=== PATIENT | female | born 1975 | race Caucasian/White ===

== ENCOUNTER 2020-04-08 11:08 | Emergency (ER) | payer OTHER ==
--- NOTE | 2020-04-08 12:16 | ER ---
Nurse's Notes [facility] Name: Oliver Savage Age: 44 yrs Sex: Female : 1975 Arrival Date: 04/08/2020 Time: 11:11 Bed 12 Private MD: Diagnosis: Allergic contact dermatitis Presentation: 04/08 11:27 Chief complaint: Patient states: I thought it was just the poison La spreading but I dm5 think I may be allergic to the benadryl or tramadol I have been taking for the poison La. Rash noted to left arm and leg. Pt reports eyes are swollen and that the rash continues to spread. Coronavirus screen: Proceed with normal triage. Patient denies a cough. Patient denies shortness of breath or difficulty breathing. Patient denies measured and/or subjective temperature greater than 100.4F prior to today's visit. Patient denies travel on a cruise ship or to a country the [facility] currently lists as an affected area. Patient denies contact with known and/or suspected case of COVID-19. Ebola Screen: Patient negative for fever greater than or equal to 101.5 degrees Fahrenheit, and additional compatible Ebola Virus Disease symptoms Patient denies exposure to infectious person. Patient denies travel to an Ebola-affected area in the 21 days before illness onset. No symptoms or risks identified at this time. Onset: The symptoms/episode began/occurred gradually. Anaphylaxis evaluation, no signs or symptoms of anaphylaxis were noted. Initial Sepsis Screen: Does the patient meet any 2 criteria? No. Patient's initial sepsis screen is negative. Does the patient have a suspected source of infection? Yes: Skin breakdown/wound. Risk Assessment: Do you want to hurt yourself or someone else? Patient reports no desire to harm self or others. Onset of symptoms was March 31, 2020. 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 - Social history:: Smoking status: Patient denies any tobacco usage or history of. Screenin:13 Abuse screen: Denies threats or abuse. Denies injuries from another. Nutritional ss screening: No deficits noted. Tuberculosis screening: No symptoms or risk factors identified. Never had TB. Fall Risk None identified. Assessment: 12:10 General: Appears uncomfortable, Behavior is calm, cooperative. Pain: Complains of pain ss in affected areas Pain currently is 3 out of 10 on a pain scale. Neuro: Level of Consciousness is awake, alert, obeys commands, Oriented to person, place, time, situation. Cardiovascular: Capillary refill < 3 seconds is brisk in bilateral fingers. Respiratory: Airway is patent Respiratory effort is even, unlabored, Respiratory pattern is regular, symmetrical, Breath sounds are clear bilaterally. Denies shortness of breath. Derm: Skin is intact, is healthy with good turgor, Skin is dry. Vital Signs: 11:27 BP 101 / 51; Pulse 88; Resp 18; Temp 98.9; Pulse Ox 99% on R/A; Weight 102.51 kg (R); dm5 Height 5 ft. 4 in. (162.56 cm); Pain 3/10; 11:27 Body Mass Index 38.79 (102.51 kg, 162.56 cm) dm5 ED Course: 11:11 Patient arrived in ED. mr 11:30 Triage completed. dm5 12:02 Aileen Joyce FNP-C is [facility]. kb 12:02 Corby Culp MD is Attending Physician. kb 12:10 Kendal Connelly, SARABJIT is Primary Nurse. ss 12:13 Patient has correct armband on for positive identification. Bed in low position. Call ss light in reach. 12:13 No provider procedures requiring assistance completed. Patient did not have IV access ss during this emergency room visit. Administered Medications: 12:25 Drug: predniSONE 40 mg Route: PO; ss 12:25 Follow up: Response: Medication administered at discharge. ss 12:25 Not Given (on backorder ): Pepcid 20 mg PO once ss Outcome: 12:15 Discharge ordered by . kb 12:26 Discharged to home ambulatory. ss 12:26 Condition: good 12:26 Discharge instructions given to patient, family, Instructed on discharge instructions, follow up and referral plans. medication usage, Demonstrated understanding of instructions, follow-up care, medications, Prescriptions given X 2. 12:26 Patient left the ED. ss Signatures: Aileen Joyce, MELO-C NURSE INFECTION CONTROL-Kandi Molina, RN RN dm5 Lloyd Merry mr Kendal Connelly, SARABJIT RN ss
--- NOTE | 2020-04-08 12:16 | EDPHYS ---
Physician Documentation [facility] Name: Oliver Savage Age: 44 yrs Sex: Female : 1975 Arrival Date: 04/08/2020 Time: 11:11 Bed 12 Private MD: NITO Physician Corby Culp HPI: 04/08 12:12 This 44 yrs old Female presents to ER via Ambulatory with complaints of kb Allergic Reaction. 12:12 The patient presents with itching, rash. Onset: The symptoms/episode began/occurred 2 kb week(s) ago. Associated signs and symptoms: Pertinent positives: rash. Possible causes: At home the patient or guardian has treated the symptoms with Benadryl. Severity of symptoms: At their worst the symptoms were moderate in the emergency department the symptoms are unchanged. The patient has not experienced similar symptoms in the past. The patient has not recently seen a physician. Pt reports she fell while in on 03/26/20. States she developed a rash on left arm so she assumed she fell into poison curtis. States she has been taking benadryl every morning for the rash and itching and tramadol at night to sleep. Reports the rash has been spreading despite meds so she is concerned that maybe she is having a reaction to the medications. 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 - Social history:: Smoking status: Patient denies any tobacco usage or history of. ROS: 12:11 Constitutional: Negative for fever, chills, and weight loss, Cardiovascular: Negative kb for chest pain, palpitations, and edema, Respiratory: Negative for shortness of breath, cough, wheezing, and pleuritic chest pain, Abdomen/GI: Negative for abdominal pain, nausea, vomiting, diarrhea, and constipation, MS/Extremity: Negative for injury and deformity, Neuro: Negative for headache, weakness, numbness, tingling, and seizure. 12:11 Skin: Positive for rash, of the face, back, buttocks and left arm. Exam: 12:11 Constitutional: This is a well developed, well nourished patient who is awake, alert, kb and in no acute distress. Head/Face: Normocephalic, atraumatic. Chest/axilla: Normal chest wall appearance and motion. Nontender with no deformity. No lesions are appreciated. Cardiovascular: Regular rate and rhythm with a normal S1 and S2. No gallops, murmurs, or rubs. Normal PMI, no JVD. No pulse deficits. Respiratory: Lungs have equal breath sounds bilaterally, clear to auscultation and percussion. No rales, rhonchi or wheezes noted. No increased work of breathing, no retractions or nasal flaring. Abdomen/GI: Soft, non-tender, with normal bowel sounds. No distension or tympany. No guarding or rebound. No evidence of tenderness throughout. MS/ Extremity: Pulses equal, no cyanosis. Neurovascular intact. Full, normal range of motion. Neuro: Awake and alert, GCS 15, oriented to person, place, time, and situation. Cranial nerves II-XII grossly intact. Motor strength 5/5 in all extremities. Sensory grossly intact. Cerebellar exam normal. Normal gait. 12:11 Skin: rash a moderate rash is noted, consistent with contact dermatitis, on the left arm and buttocks and back and face. Vital Signs: 11:27 BP 101 / 51; Pulse 88; Resp 18; Temp 98.9; Pulse Ox 99% on R/A; Weight 102.51 kg (R); dm5 Height 5 ft. 4 in. (162.56 cm); Pain 3/10; 11:27 Body Mass Index 38.79 (102.51 kg, 162.56 cm) dm5 MDM: 12:03 Patient medically screened. kb 12:10 Data reviewed: vital signs, nurses notes. Data interpreted: Pulse oximetry: on room air kb is 99 %. Interpretation: normal. Counseling: I had a detailed discussion with the patient and/or guardian regarding: the historical points, exam findings, and any diagnostic results supporting the discharge/admit diagnosis, the need for outpatient follow up, a family practitioner, to return to the emergency department if symptoms worsen or persist or if there are any questions or concerns that arise at home. Administered Medications: 12:25 Drug: predniSONE 40 mg Route: PO; ss 12:25 Follow up: Response: Medication administered at discharge. ss 12:25 Not Given (on backorder ): Pepcid 20 mg PO once ss Disposition: 20:33 Co-signature as Attending Physician, Corby Culp MD I agree with the assessment and sonny plan of care. Disposition: 04/08/20 12:15 Discharged to Home. Impression: Allergic contact dermatitis. - Condition is Stable. - Discharge Instructions: Contact Dermatitis, [id number]. - Prescriptions for Pepcid 20 mg Oral Tablet - take 1 tablet by ORAL route every 12 hours for 5 days; 10 tablet. Prednisone 20 mg Oral Tablet - take 1 tablet by ORAL route once daily for 5 days; 5 tablet. - Medication Reconciliation Form, Thank You Letter, Antibiotic Education, Prescription Opioid Use form. - Follow up: Emergency Department; When: As needed; Reason: Worsening of condition. Follow up: Private Physician; When: 2 - 3 days; Reason: Recheck today's complaints, Continuance of care, Re-evaluation by your physician. Signatures: Aileen Joyce, MELO-C MELO-Kandi Molina, RN RN dmCorby Romo MD MD cha Smirch, Shelby, RN RN Corrections: (The following items were deleted from the chart) 12:26 12:15 04/08/2020 12:15 Discharged to Home. Impression: Allergic contact dermatitis. ss Condition is Stable. Forms are Medication Reconciliation Form, Thank You Letter, Antibiotic Education, Prescription Opioid Use. Follow up: Emergency Department; When: As needed; Reason: Worsening of condition. Follow up: Private Physician; When: 2 - 3 days; Reason: Recheck today's complaints, Continuance of care, Re-evaluation by your physician. kb
[2020-04-08] MEDS ORDERED: predniSONE 20 MG TAB ONE (12:29)
[2020-04-08 12:43] VITALS: BP 101/51; TEMP 98.9; O2SAT 99
--- OUTSIDE RECORDS SUMMARY | 2020-04-08 15:25 | XMS REPORT | Continuity of Care Document ---
:1975 Author Organization [facility] t Address [address] [place] [address] Care Team Providers Name Role Phone Oksana Briseno Attending Clinician Anastasiia Steel MD Attending Clinician Problems This patient has no known problems. Allergies, Adverse Reactions, Alerts This patient has no known allergies or adverse reactions. Medications This patient has no known medications. Procedures This patient has no known procedures. Encounters Start End Encounter Admission Attending Care Care Encounter Source Date/Time Date/Time Type Type Clinicians Facility Department ID 2020-03-31 2020-03-31 Urgent Garth [facility] [id number] 10:47:13 12:00:20 Care Lori [facility] [id number] [facility] [id number] Primary & [facility] Specialty Care 2020-03-21 2020-03-21 Office YAHAIRA Steel [id number] 10:23:12 10:53:12 Visit [facility] [id number] Results This patient has no known results.
--- OUTSIDE RECORDS SUMMARY | 2020-04-08 15:26 | XMS REPORT | Summary of Care ---
:1975 Author Organization [facility] - [facility] Address [address] [place] [address] Care Team Providers Name Role Phone Pcp, Does Not Have A Primary Care Provider Reason for Visit Reason Comments Vaginal Problem itching and odor Auth/Cert Status Reason Specialty Diagnoses / Procedures Referred By Shaji ricci Referred To Contact Phlebotomy Diagnoses Vaginal discharge - Adc Pob Lab Draw Procedures urine cx [facility] [address] [place] [address] shelly Eason, [address] [place] [address] Phone: Fax: Encounter Details Date Type Department Care Team Description 03/13/2020 Urgent Care [facility] Family IngridKia coleman, ALEJO [address] [place] [address] [facility] [phone] Vaginal discharge (Primary Dx); Medicine - [place] Provider, [facility] Vaginal irritation; [address] [place] [address] Acute cyst itis without hematuria; Drive Screen for STD (sexually tra nsmitted disease) [place] [address] Allergies Active Allergy Reactions Severity Noted Date Comments Nitrofurantoin Monohyd/M-Cryst Anaphylaxis 02/23/2012 Miconazole-Skin Clnsr17 Hives 06/09/2015 Morphine Itching 04/15/2015 documented as of this encounter (statuses as of 03/16/2020) Medications Medication Sig Dispensed Refills Start Date End Date Status estradiol 0.1 mg/24 Apply 1 Patch to 8 Patch 0 07/09/2019 Active hr twice weekly skin every Tuesday patchIndications: and in Surgical menopause on the evening. hormone replacement therapy ESTRADIOL 0.1 mg/24 APPLY 1 PATCH 2 8 Patch 3 12/10/2019 Active hr twice weekly TIMES A WEEK ON patchIndications: TUESDAY AND Surgical menopause TUESDAY. cefUROXime 250 mg Take 1 tablet by 14 tablet 0 03/13/202002/25 Active tabletIndications: mouth 2 (two) Acute cystitis times daily for 7 without hematuria days. 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 COVID-19 Exposure Response Date Recorded In the last month, have you been in contact with No / Unsure 03/13/2020 3:28 PM CDT someone who was confirmed or suspected to have Coronavirus / COVID-19? documented as of this encounter Last Filed Vital Signs Vital Sign Reading Time Taken Comments Blood Pressure 136/80 03/13/2020 3:40 PM CDT Pulse 86 03/13/2020 3:40 PM CDT Temperature 37.2 C (98.9 F) 03/13/2020 3:40 PM CDT Respiratory Rate 18 03/13/2020 3:40 PM CDT Oxygen Saturation 99% 03/13/2020 3:40 PM CDT Inhaled Oxygen Concentration - - Weight 95.3 kg (210 lb) 03/13/2020 3:40 PM CDT Height 162.6 cm (5' 4") 03/13/2020 3:40 PM CDT Body Mass Index 36.05 03/13/2020 3:40 PM CDT documented in this encounter Progress Notes Nelly Quintero PA - 03/13/2020 3:20 PM CDT Cc: Chief Complaint Patient presents with Vaginal Problem itching and odor Oliver De La O is a 44 year old female. Vaginal discharge: Duration: 3 days ago Color: clear and milky Sexually active: yes. Patient had unprotected intercourse with ex- PMH of STD: none Denies partner having known STD S/p total hysterectomy Admits to using vaginal wipes Takes baths Associated s/s: + foul odor + vaginal irritation/ itching No bleeding, pain No genital lesions No dysuria, frequency, urgency, hematuria, flank pain No abdominal pain,n/v/d/c No f/c No rash Tx: nothing Allergies Oliver is allergic to macrobid [nitrofurantoin monohyd/m-cryst]; monistat 1 triple action [miconazole-skin ]; and morphine. Medications Outpatient Medications Prior to Visit Medication Sig Dispense Refill estradiol 0.1 mg/24 hr twice weekly patch Apply 1 Patch to skin every Tuesday and [facility] 8 Patch 0 ESTRADIOL 0.1 mg/24 hr twice weekly patch APPLY 1 PATCH 2 TIMES A WEEK ON TUESDAY AND TUESDAY. 8 Patch 3 No facility-administered medications prior to visit. 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 of cervix Past Surgical History: Procedure Laterality Date COLONOSCOPY N/A 01/07/2015 Surgeon: Oscar Hernandez MD; Location: [facility] CYSTOSCOPY 04/16/2015 EGD (ENDO) 03/07/2019 normal ESOPHAGOGASTRODUODENOSCOPY N/A 01/07/2015 Surgeon: Oscar Hernandez MD; Location: [facility] ESOPHAGOGASTRODUODENOSCOPY N/A 04/14/2017 Surgeon: Avinash Gracia MD; Location: [facility] ESOPHAGOGASTRODUODENOSCOPY N/A 03/07/2019 Surgeon: Avinash Gracia MD; Location: [facility] FLEX SIGMOIDOSCOPY 03/07/2019 small rectal polyp, repeat 1-2 yrs LAP W/TOT HYSTERECT <250GM W/TUBE/OVARY 04/15/2015 LAP,SURG,COLECTOMY,TOTAL,W/O PROCTECTOMY 02/04/2015 LAPAROSCOPIC ASSISTED VAGINAL HYSTERECTOMY N/A 04/15/2015 Surgeon: Jose Alfredo Bertrand; [facility]: [facility] LAPAROSCOPIC ASSISTED VAGINAL HYSTERECTOMY N/A 04/15/2015 Surgeon: Jose Alfredo Bertrand; [facility]: [facility] LAPAROSCOPIC COLECTOMY N/A 02/04/2015 Surgeon: Avinash Gracia MD; [facility]: [facility] LAPAROSCOPIC LYSIS OF ADHESIONS (SHX) 02/04/2015 LAPAROSCOPIC LYSIS OF ADHESIONS (SHX) N/A 02/04/2015 Surgeon: Avinash Gracia MD; [facility]: [facility] OTHER Bunion surgery PROCTOSCOPY N/A 02/04/2015 Surgeon: Avinash Gracia MD; Location: [facility] SALPINGO-OOPHORECTOMY N/A 04/15/2015 Surgeon: Jose Alfredo Bertrand; Location: [facility] SIGMOIDOSCOPY N/A 12/30/2016 Surgeon: Avinash Gracia MD; Location: [facility] SIGMOIDOSCOPY N/A 12/30/2016 Surgeon: Avinash Gracia MD; Location: [facility] Location SIGMOIDOSCOPY N/A 03/07/2019 Surgeon: Avinash Gracia MD; Location: [facility] SPLENIC FLEXURE MOBILIZATION N/A 02/04/2015 Surgeon: Avinash Gracia MD; Location: [facility] TONSILLECTOMY 1984 URETEROLYSIS 02/04/2015 Social History Socioeconomic History Marital status: Spouse name: Not on file Number of children: Not on file Years of education: Not on file Highest education level: Not on file Occupational History Not on file Social Needs Financial resource strain: Not on file Food insecurity: Worry: Not on file Inability: Not on file Transportation needs: Medical: Not on file Non-medical: Not on file Tobacco Use Smoking status: Never Smoker Smokeless tobacco: Never Used Substance and Sexual Activity Alcohol use: Yes Comment: occaisional drink Drug use: No Sexual activity: Yes control/protection: Surgical Comment: hysterectomy Lifestyle Physical activity: Days per week: Not on file Minutes per session: Not on file Stress: Not on file Relationships Social connections: Talks on phone: Not on file Gets together: Not on file Attends restorationist service: Not on file Active member of club or organization: Not on file Attends meetings of clubs or organizations: Not on file Relationship status: Not on file Intimate partner violence: Fear of current or ex partner: Not on file Emotionally abused: Not on file Physically abused: Not on file Forced sexual activity: Not on file Other Topics Concern Not on file 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 Alcohol/Drug Brother aloholic Hypertension Brother Cancer Mother lung Cancer Maternal Grandfather lung Review of Systems Constitutional: Negative for activity change, appetite change, chills, diaphoresis, fatigue and fever. HENT: Negative for mouth sores. Respiratory: Negative for chest tightness, shortness of breath and wheezing. Cardiovascular: Negative for chest pain, palpitations and leg swelling. Gastrointestinal: Negative for abdominal pain, diarrhea, nausea and vomiting. Genitourinary: Positive for vaginal discharge. Negative for bladder incontinence, dysuria, urgency, frequency, hematuria, flank pain, decreased urine volume, vaginal bleeding, enuresis, difficulty urinating, genital sores, vaginal pain, menstrual problem, pelvic pain, dyspareunia and nocturia. + vaginal irritation + vaginal itching Musculoskeletal: Negative for arthralgias, back pain and myalgias. Skin: Negative for color change and rash. Neurological: Negative for dizziness, syncope, weakness and light-headedness. Vital Signs BP 136/80 | Pulse 86 | Temp 37.2 C (98.9 F) (Oral) | Resp 18 | Ht 5' 4" (1.626 m) | Wt 210 lb (95.3 kg) | LMP 02/27/2015 (Approximate) | SpO2 99% | BMI 36.05 kg/m Physical Exam Constitutional: She is oriented to person, place, and time. She appears well- developed and well-nourished. No distress. HENT: Head: Normocephalic and atraumatic. Cardiovascular: Normal rate, regular rhythm and normal heart sounds. Pulmonary/Chest: Effort normal and breath sounds normal. Abdominal: Soft. Bowel sounds are normal. She exhibits no distension. There is no tenderness. There is no rigidity, no rebound, no guarding and no CVA tenderness. Genitourinary: There is no rash, tenderness, lesion or injury on the right labia. There is no rash, tenderness, lesion or injury on the left labia. Right adnexum displays no mass, no tenderness and no fullness. Left adnexum displays no mass, no tenderness and no fullness. No erythema, tenderness or bleeding in the vagina. No foreign body in the vagina. No signs of injury around the vagina. Vaginal discharge (small amount of white milky discharge) found. Genitourinary Comments: Linda Jean MA, present as witness S/p total hysterectomy, cervix/uterus/adnexa absent on exam Musculoskeletal: Normal range of motion. Neurological: She is alert and oriented to person, place, and time. Skin: Skin is warm and dry. No rash noted. She is not diaphoretic. Psychiatric: She has a normal mood and affect. Her behavior is normal. Nursing note and vitals reviewed. Results for OLIVER DE LA O ( ) as of 03/14/2020 09:18 Ref. Range 03/13/2020 00:00 POCT PH U Latest Ref Range: 5 - 8 mg/dl 7 POCT U SP GRAV Latest Ref Range: 1.005 - 1.025 mg/dl 1.010 POCT U GLU Latest Ref Range: Negative - Negative NORMAL POCT U BLD Latest Ref Range: Negative - Negative TRACE POCT U KETONE Latest Ref Range: Negative - Negative NEGATIVE POCT U PROT Latest Ref Range: Negative - Negative TRACE POCT U UROBILI Latest Ref Range: 0.2 - 1 mg/dl NORMAL POCT U BILI Latest Ref Range: Negative - Negative NEGATIVE POCT U NIT Latest Ref Range: Negative - Negative NEGATIVE POCT U LEUK EST Latest Ref Range: Negative - Negative ++ POCT U COLOR Unknown YELLOW POCT U APPEAR Unknown CLOUDY Urine Culture >100,000 CFU/mL Escherichia coli Resulting Agency: Susceptibility Escherichia coli SUSCEPTIBILITY TESTING Ampicillin <=2 Susceptible Cefazolin <=4 Susceptible Ceftriaxone <=1 Susceptible Ciprofloxacin <=0.25 Susceptible Ertapenem <=0.5 Susceptible Gentamicin <=1 Susceptible Levofloxacin <=0.12 Susceptible Nitrofurantoin <=16 Susceptible Piperacillin/Tazobactam <=4 Susceptible Trimethoprim/Sulfamethoxazole <=20 Susceptible Results for OLIVER DE LA O ( ) as of 03/16/2020 21:06 Ref. Range 03/13/2020 15:52 03/13/2020 16:12 03/13/2020 16:38 HBsAg Latest Ref Range: Negative Negative HBsAg Semi-Quantitative Unknown 0.08 HCV Ab Unknown Negative HCV Semi-Quantitative Unknown 0.03 HIV 1/2 Ag-Ab with Reflex Latest Ref Range: Negative Negative HIV Semi-quantitative Unknown 0.15 HSV I IgG Latest Ref Range: Negative Positive HSV II IgG Latest Ref Range: Negative Positive URINE CULTURE Unknown Rpt Howard species DNA Probe Latest Ref Range: Negative Negative Gardnerella vaginalis DNA Probe Latest Ref Range: Negative Negative Trichomonas vaginalis DNA Probe Latest Ref Range: Negative Negative Chlamydia Amplified Assay Latest Ref Range: Negative Negative GC Amplified Assay Latest Ref Range: Negative Negative RPR (Qualitative) Latest Ref Range: Nonreactive Nonreactive Assessment/Plan Vaginal discharge (primary encounter diagnosis) Vaginal irritation Plan: POCT URINALYSIS W SPECIFIC GRAVITY, GALV ONLY - VAGINAL PATHOGENS BY DNA PROBE, URINE CULTURE, GC & CHLAMYDIA AMPLIFIED ASSAY, GC & CHLAMYDIA AMPLIFIED ASSAY, HIV 1/2 AG-AB WITH REFLEX, HEPATITIS C VIRUS ANTIBODY, HEPATITIS B SURFACE ANTIGEN, ADC OR VICKIE ONLY - RPR, HSV 1 AND 2 GLYCOPROTEIN G IGG, cefUROXime 250 mg tablet Afebrile, well appearing, NAD. HR < 100. No f/c, n/v. Does has small amount of discharge on exam,STD screening/vaginal pathogen testing ordered. No pelvic pain or tenderness on exam. No evidence ofPID. STD and safe sex counseling given. Encouraged to avoid sexual activity. Neg g/c, neg trich/howard and BV. Recommend follow-up with retail and restaurant associate. Recommend loose fitting, breathable cotton clothing/undergarments. Recommend keeping area clean and dry. Avoid soaking in bath. Avoid scented soaps. Avoid vaginal douche. UA done which is positive for UTI: positive leuk. no f/c, n/v. No flank pain and no CVAT. Start on ceftin. Take full course as directed with food. Acute cystitis without hematuria Plan: URINE CULTURE, cefUROXime 250 mg tablet Afebrile, well appearing, NAD. No flank pain and no CVAT. UA done which is positive for UTI: positive leuk. Start on ceftin. Take full course as directed with food. Urine culture confirms uti, 2/2 e coli suspectible to cephalosporin. Continue ceftin as directed. Screen for STD (sexually transmitted disease) Plan: GAL[facility] ONLY - VAGINAL PATHOGENS BY DNA PROBE, GC & CHLAMYDIA AMPLIFIED ASSAY, HIV 1/2 AG-AB WITH REFLEX, HEPATITIS C VIRUS ANTIBODY, HEPATITIS B SURFACE ANTIGEN, ADC OR VICKIE ONLY - RPR, HSV 1 AND 2 GLYCOPROTEIN G IGG Safe sex/STD prevention counseling given. Encouraged to avoid sexual activity. Encouraged in the future to use condom every time. 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 No active lesions. Recommend follow-up with retail and restaurant associate. Pt ed/precautions given in detail regarding conditions/medicaitons. Er precautions given. Pt reportsunderstanding and agrees. rtc if s/s worsen or do not improve ; Plan of care, desired health behaviors, goals, Ddx, & any prescribed or OTC medications discussed with patient. Education resources & self management tools provided and reviewed with AVS. Patient/guardian/family verbalized understanding & agrees to plan of care. Barriers to care: NONE Ability to manage care: Good This visit did not involve counseling and coordination that comprised more than 50% of the visit time. documented in this encounter Plan of Treatment Health Maintenance Due Date Last Done Comments PNEUMOCOCCAL 0-64 YEARS COMBINED 1979 SERIES (1 of 3 - PCV13) DTaP,Tdap,and Td Vaccines (1 - 1984 Tdap) PAP SMEAR 04/10/2018 04/10/2015 INFLUENZA VACCINE (Season Ended) 2020 Breast Cancer Screening 08/03/2020 08/03/2019, 04/18/2018, (MAMMOGRAM) 01/19/2017, Additional history exists Depression Screening 08/03/2020 08/03/2019 documented as of this encounter Procedures Procedure Name Priority Date/Time Associated Diagnosis Comme nts HIV 1/2 AG-AB WITH Routine 03/13/2020 4:38 Screen for STD Res ults for this REFLEX PM CDT (sexually procedure are i n transmitted dise ase) the results Vaginal discharg e section. Vaginal irritation ADC OR VICKIE ONLY - Routine 03/13/2020 4:38 Screen for STD Results for this RPR PM CDT (sexually procedure are i n transmitted dise ase) the results Vaginal discharg e section. Vaginal irritation HSV 1 AND 2 Routine 03/13/2020 4:38 Screen for STD Results f or this GLYCOPROTEIN G IGG PM CDT (sexually procedure are in transmitted dise ase) the results Vaginal discharg e section. Vaginal irritation HCV ANTIBODY Routine 03/13/2020 4:38 Screen for STD Results f or this PM CDT (sexually procedure are i n transmitted dise ase) the results Vaginal discharg e section. Vaginal irritation HEPATITIS B SURFACE Routine 03/13/2020 4:38 Screen for STD Re sults for this ANTIGEN PM CDT (sexually procedure are i n transmitted dise ase) the results Vaginal discharg e section. Vaginal irritation GC & CHLAMYDIA Routine 03/13/2020 4:12 Vaginal dischar ge Results for this AMPLIFIED ASSAY PM CDT Vaginal irritation proced ure are in the results section. GALV ONLY - VAGINAL Routine 03/13/2020 3:52 Vaginal dis charge Results for this PATHOGENS BY DNA PM CDT Vaginal irritat ion procedure are in PROBE Screen for STD the results (sexually section. transmitted disease) URINE CULTURE Routine 03/13/2020 3:52 Vaginal dischar ge Results for this PM CDT Vaginal irritati on procedure are in Acute cystitis the results without hematuria section. POCT URINALYSIS Routine 03/13/2020 Vaginal discharg e Results for this Vaginal irritation procedure are in the results section. documented in this encounter Results HSV 1 AND 2 GLYCOPROTEIN G IGG (03/13/2020 4:38 PM CDT) Pathologist Sig nature HSV I IgG Positive Negative [facility] HSV II IgG Positive Negative [facility] Specimen Blood Narrative Performed At Positive - IgG antibody to HSV 1 and/or HSV 2 detected. [facility] Negative - No HSV 1 and/or HSV 2 antibod y detected. Equivocal - A second sample should be sent. Performing Organization Address City/State/Zipcode Phone Number [facility] CLIA: [id number], [address] [place], [place] [address] [facility] ADC OR VICKIE ONLY - RPR (03/13/2020 4:38 PM CDT) Pathologist Sig nature RPR (Qualitative) Nonreactive Nonreactive [facility] Specimen Blood Performing Organization Address City/[facility]/Zipcode Phone Number [facility] CLIA: [id number], [address] [place] [phone] LABORATORY [facility] HEPATITIS B SURFACE ANTIGEN (03/13/2020 4:38 PM CDT) Pathologist Sig [facility] HBsAg Negative Negative [facility] HBsAg 0.08 [facility] Semi-Quantitative SERVICES Specimen Blood Performing Organization Address City/[facility] Phone Number [facility] CLIA: [id number], [address] [place] [phone] [facility] HEPATITIS C VIRUS ANTIBODY (03/13/2020 4:38 PM CDT) Pathologist Sig [facility] HCV Ab Negative [facility] HCV Semi-Quantitative 0.03 [facility] Specimen Blood Performing Organization Address City/[facility] Phone Number [facility] CLIA: [id number], [address] [place] [phone] [facility] HIV 1/2 AG-AB WITH REFLEX (03/13/2020 4:38 PM CDT) Pathologist Sig [facility] HIV 1/2 Ag-Ab with Negative Negative [facility] HIV Semi-quantitative 0.15 [facility] Specimen Blood Narrative Performed At Non-reactive for HIV-1 antigen and HIV-1/HIV-2 [facility] antibodies. No laboratory evidence of HIV infection. Repeat in 2-4 weeks if acute HIV infection is suspected. Performing Organization Address City/[facility]/Zipcode Phone Number [facility] CLIA: [id number], [address] [place] [phone] [facility] GC & CHLAMYDIA AMPLIFIED ASSAY (03/13/2020 4:12 PM CDT) Pathologist Sig [facility] C. trachomatis Nucleic Negative Negative [facility] N. gonorrhoeae Nucleic Negative Negative [facility] SERVICES Specimen Urine - Urine, First Catch (First Void) Performing Organization Address [facility] Phone Number [facility] CLIA: [id number], [address] [place] [phone] [facility] URINE CULTURE (03/13/2020 3:52 PM CDT) URINE CULTURE >100,000 CFU/mL [facility] Escherichia coli SERVICES Specimen Urine - URINE, CLEAN CATCH Organism Antibiotic Method Susceptibility Escherichia coli Ampicillin SUSCEPTIBILITY TESTING <=2: Melly ceptible Escherichia coli Cefazolin SUSCEPTIBILITY TESTING <=4: Melly ceptible Escherichia coli Ceftriaxone SUSCEPTIBILITY TESTING <=1: Melly ceptible Escherichia coli Ciprofloxacin SUSCEPTIBILITY TESTING <=0.25: Susceptible Escherichia coli Ertapenem SUSCEPTIBILITY TESTING <=0.5: S usceptible Escherichia coli Gentamicin SUSCEPTIBILITY TESTING <=1: Melly ceptible Escherichia coli Levofloxacin SUSCEPTIBILITY TESTING <=0.12: Susceptible Escherichia coli Nitrofurantoin SUSCEPTIBILITY TESTING <=16: [place] sceptible Escherichia coli Piperacillin/Tazobactam SUSCEPTIBILITY TESTING <=4: Susceptible Escherichia coli Trimethoprim/Sulfamethoxa SUSCEPTIBILITY TESTIN G <=20: Susceptible zole Comment: Nitrofurantoin is not recommended for us e in treating pyelonephritis or systemic disease. Performing Organization Address [facility] Phone Number [facility] CLIA: [id number], [address] [place] [address] [facility] GALV ONLY - VAGINAL PATHOGENS BY DNA PROBE (03/13/2020 3:52 PM CDT) Pathologist Sig nature Trichomonas vaginalis Negative Negative [facility] Gardnerella vaginalis Negative Negative [facility] Howard species Negative Negative [facility] Specimen Fluid - VAGINA Performing Organization Address [facility] Phone Number [facility] CLIA: [id number], [address] [place] [phone] [facility] POCT URINALYSIS W SPECIFIC GRAVITY (03/13/2020) Pathologist Sig nature POCT U SP GRAV 1.010 1.005 - 1.025 mg/dl POCT PH U 7 5 - 8 mg/dl POCT U LEUK EST ++ Negative - Negative POCT U NIT NEGATIVE Negative - Negative POCT U PROT TRACE Negative - Negative POCT U GLU NORMAL Negative - Negative POCT U KETONE NEGATIVE Negative - Negative POCT U UROBILI NORMAL 0.2 - 1 mg/dl POCT U BILI NEGATIVE Negative - Negative POCT U BLD TRACE Negative - Negative POCT U COLOR YELLOW POCT U APPEAR CLOUDY Specimen Urine - URINE, CLEAN CATCH documented in this encounter Visit Diagnoses Diagnosis Vaginal discharge - Primary Leukorrhea, not specified as infective Vaginal irritation Unspecified noninflammatory disorder of vagina Acute cystitis without hematuria Acute cystitis Screen for STD (sexually transmitted dis ease) Screening examination for venereal disea se documented in this encounter Insurance Payer Benefit Plan / Subscriber ID Effective Dates Phone Addre ss Type Group [facility] [id number] [facility] P[facility] t S documented as of this encounter
--- OUTSIDE RECORDS SUMMARY | 2020-04-08 15:26 | XMS REPORT | Summary of Care ---
:1975 Author Organization [facility] Address [address] [place] [address] Care Team Providers Name Role Phone Pcp, Does Not Have A Primary Care Provider Reason for Visit Reason Comments LAB WORK Auth/Cert Status Reason Specialty Diagnoses / Procedures Referred By Shaji ricci Referred To Contact Phlebotomy Diagnoses Vaginal discharge - Adc Pob Lab Draw Procedures urine cx [facility] [address] [place] [address] , [address] [place] [address] Phone: Fax: Encounter Details Date Type Department Care Team Description 03/13/2020 Automation Developer Visit [facility] Nelly Quintero PA [address] [place] [address] [place] [address] Vaginal discharge Professional [facility] Pob, Adc Lab Main Building Phlebotomy Lab [facility] [address] [place] [address] , [address] [place] [address] Allergies Active Allergy Reactions Severity Noted Date Comments Nitrofurantoin Monohyd/M-Cryst Anaphylaxis 02/23/2012 Miconazole-Skin Clnsr17 Hives 06/09/2015 Morphine Itching 04/15/2015 documented as of this encounter (statuses as of 03/13/2020) Medications Medication Sig Dispensed Refills Start Date [...] Take 1 tablet by 14 tablet 0 03/13/20202 01/2020 Active tabletIndications: mouth 2 (two) Acute UTI times daily for 7 days. 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 S/P colectomy 04/10/2015 Obesity (BMI 30.0-34.9) 04/10/2015 Colon cancer 12/25/2014 Anxiety and depression 04/01/2014 documented as of this encounter (statuses as of 03/13/2020) Social History Tobacco Use Types Packs/Day Years Used Date Never Smoker Smokeless Tobacco: Never Used Alcohol Use Drinks/Week oz/Week Comments Yes occaisional fahad zarate Sex Assigned at Date Recorded Not on [...] of this encounter Last Filed Vital Signs Not on filedocumented in this encounter Plan of Treatment Health Maintenance Due Date Last Done Comments PNEUMOCOCCAL 0-64 YEARS COMBINED 1979 SERIES (1 of 3 - PCV13) DTaP,Tdap,and Td Vaccines (1 - 1984 Tdap) PAP SMEAR 04/10/2018 04/10/2015 INFLUENZA VACCINE (Season Ended) 2020 Breast Cancer Screening 08/03/2020 08/03/2019, 04/18/2018, (MAMMOGRAM) 01/19/2017, Additional history exists Depression Screening 08/03/2020 08/03/2019 documented as of this encounter Results Not on filedocumented in this encounter Visit Diagnoses Diagnosis Vaginal discharge Leukorrhea, not specified as infective documented in this encounter Insurance Payer Benefit Plan / Subscriber ID Effective Dates Phone Addre ss Type Group [facility] [id number] [facility] PPO t S documented as of this encounter
--- OUTSIDE RECORDS SUMMARY | 2020-04-08 15:26 | XMS REPORT | Summary of Care ---
:1975 Author Organization [facility] Address [address] [place] [address] Care Team Providers Name Role Phone Pcp, Does Not Have A Primary Care Provider Reason for Visit Reason Comments Follow-up Encounter Details Date Type Department Care Team Description 03/21/2020 Office Visit [facility] Pratima Steel MD History of herpes [address] genitalis (Primary [facility] Clinics [place], [place] Dx) [address] [address] [address], 3rd Floor [phone] [place] [address] Allergies Active Allergy Reactions Severity Noted Date Comments Nitrofurantoin Monohyd/M-Cryst Anaphylaxis 02/23/2012 Miconazole-Skin Clnsr17 Hives 06/09/2015 Morphine Itching 04/15/2015 documented as of this encounter (statuses as of 03/21/2020) Medications Medication Sig Dispensed Refills Start Date End Date Status estradiol 0.1 mg/24 hr Apply 1 Patch to 8 Patch 0 07/09/2019 Active twice weekly skin every Tuesday patchIndications: and in Surgical menopause on the evening. hormone replacement therapy ESTRADIOL 0.1 mg/24 hr APPLY 1 PATCH 2 8 Patch 3 12/10/2019 Active twice weekly TIMES A WEEK ON patchIndications: TUESDAY AND TUESDAY. 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 COVID-19 Exposure Response Date Recorded In the last month, have you been in contact with No / Unsure 03/21/2020 10:30 AM CDT someone who was confirmed or suspected to have Coronavirus / COVID-19? documented as of this encounter Last Filed Vital Signs Vital Sign Reading Time Taken Comments Blood Pressure 135/86 03/21/2020 10:30 AM CDT Pulse 64 03/21/2020 10:29 AM CDT Temperature - - Respiratory Rate - - Oxygen Saturation - - Inhaled Oxygen Concentration - - Weight 98 kg (216 lb) 03/21/2020 10:29 AM CDT Height - - Body Mass Index 37.08 03/13/2020 3:40 PM CDT documented in this encounter Progress Notes Alberto Steel MD - 03/21/2020 10:30 AM CDT Chief complaint: Chief Complaint Patient presents with Follow-up Oliver Savage is a 44 year old female with hx of hysterectomy presents for follow up after being evaluated at the ER and found to have blood test c/w HSV1 and HSV2. Patient reports that she does not have any active lesions present and has never had any unknown outbreaks. She had been evaluated due to vaginal discharge and odor and was found to have an E.coli UTI, which she was treated and has not had any further symptoms. She denies any vaginal discharge or genital discomfort today. She has no other complaints. 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 Alcohol/Drug Brother aloholic Hypertension Brother Cancer Mother lung Cancer Maternal Grandfather lung Family Status Relation Name Status Fa at age 62 PGMo at age 39 MUnc Mo (Not Specified) Mo (Not Specified) Bro (Not Specified) Mo (Not Specified) MGFa (Not Specified) Past Surgical History: Procedure Laterality Date COLONOSCOPY [...] Jose Alfredo Bertrand; [facility] LAPAROSCOPIC ASSISTED VAGINAL HYSTERECTOMY N/A 04/15/2015 Surgeon: Jose Alfredo Bertrand; [facility] LAPAROSCOPIC COLECTOMY N/A 02/04/2015 Surgeon: Avinash Gracia MD; [facility] LAPAROSCOPIC LYSIS OF ADHESIONS (SHX) 02/04/2015 LAPAROSCOPIC LYSIS OF ADHESIONS (SHX) N/A 02/04/2015 Surgeon: Avinash Gracia MD; [facility] OTHER Bunion surgery PROCTOSCOPY N/A 02/04/2015 Surgeon: Avinash Gracia MD; [facility] SALPINGO-OOPHORECTOMY N/A 04/15/2015 Surgeon: Jose Alfredo Bertrand; [facility] SIGMOIDOSCOPY N/A 12/30/2016 Surgeon: Avinash Gracia MD; Location: [facility] Location SIGMOIDOSCOPY N/A 12/30/2016 Surgeon: Avinash Gracia MD; Location: [facility] Location SIGMOIDOSCOPY N/A 03/07/2019 Surgeon: Avinash Gracia MD; Location: [place] [facility] SPLENIC FLEXURE MOBILIZATION N/A 02/04/2015 Surgeon: Avinash Gracia MD; [facility]: [facility] TONSILLECTOMY 1984 URETEROLYSIS 02/04/2015 Social [...] file Gets together: Not on file Attends orthodox service: Not on file Active member of [...] 3 kids - one in High school Social History Substance and Sexual Activity Sexual Activity Yes control/protection: Surgical Comment: hysterectomy Labs No new labs Radiology No new radiology. Allergies Oliver is allergic to macrobid [nitrofurantoin monohyd/m-cryst]; monistat 1 triple action [miconazole-skin ]; and morphine. Medications Oliver has a current medication list which includes the following prescription(s): estradiol and estradiol. Review of Systems Constitutional: Negative. Negative for fever and unexpected weight change. HENT: Negative. Eyes: Negative. Negative for photophobia and visual disturbance. Respiratory: Negative. Negative for cough, shortness of breath and wheezing. Cardiovascular: Negative. Negative for chest pain and palpitations. Gastrointestinal: Negative. Negative for abdominal pain, constipation, diarrhea, nausea and vomiting. Genitourinary: Negative. Negative for vaginal discharge and pelvic pain. Musculoskeletal: Negative. Negative for arthralgias, myalgias, neck pain and neck stiffness. Skin: Negative. Negative for color change and wound. Neurological: Negative. Negative for light-headedness and headaches. Psychiatric/Behavioral: Negative. Negative for behavioral problems. BP 135/86 | Pulse 64 | Wt 216 lb (98 kg) | LMP 02/27/2015 (Approximate) | BMI 37.08 kg/m Pregravid BMI: Could not be calculated Physical Exam Assessment/Plan History of herpes genitalis (primary encounter diagnosis) Comment: Patient with the above hx and findings with no active HSV lesions and no complaints today.We discussed the implication of +HSV serology. At this time, because she does not have any lesions or complaints, there is no need for antivirals at this time. We discussed that this is only contagious when there is an active lesion or pain in the genital area. All questions and concerns addressed. Plan: - Follow up as needed - Follow up with annual WWE This visit did not involve counseling and [...] filedocumented in this encounter Visit Diagnoses Diagnosis History of herpes genitalis - Primary Personal history of other infectious and parasitic disease documented in this encounter Insurance Payer Benefit Plan / Subscriber ID Effective Dates Phone Addre ss Type Group [facility] [id number] [facility] [place] 2[place] PPO t S documented as of this encounter"
--- OUTSIDE RECORDS SUMMARY | 2020-04-08 15:27 | XMS REPORT | Summary of Care ---
:1975 Author Organization [facility] Address [address] [place] [address] Care Team Providers Name Role Phone Pcp, Does Not Have A Primary Care Provider Reason for Visit Reason Comments Follow-up Encounter Details Date Type Department Care Team Description 03/21/2020 Office Visit [facility] Women[facility] Pratima Steel MD History of herpes [address] genitalis (Primary [facility] Clinics [place], [place] Dx) [address] [address] [address], [address] Floor [phone] [place] [address] Allergies Active Allergy Reactions Severity [...] N/A 12/30/2016 Surgeon: Avinash Gracia MD; Location: [facility] [facility] Location SIGMOIDOSCOPY N/A 12/30/2016 Surgeon: Avinash Gracia MD; Location: [place] [facility] Location SIGMOIDOSCOPY N/A 03/07/2019 Surgeon: Avinash Gracia MD; Location: [place] [facility] SPLENIC FLEXURE MOBILIZATION N/A [...] file Gets together: Not on file Attends taoist service: Not on file Active member of [...] Effective Dates Phone Addre ss Type Group [facility] [id number] [facility] [place] PPO t S documented as of this encounter"
--- OUTSIDE RECORDS SUMMARY | 2020-04-08 15:27 | XMS REPORT | Summary of Care ---
:1975 Author Organization [facility] Address [address] [place] [address] Care Team Providers Name Role Phone Pcp, Does Not Have A Primary Care Provider Reason for Visit Reason Comments Skin Problem Encounter Details Date Type Department Care Team Description 03/31/2020 Urgent Care [facility] Unknown, Attending Pois on curtis dermatitis [facility] Lori Liang, AIRWORTHINESS INSPECTOR [address] [place], [place] [id number] (Primary [place]x) [address] [place] [address] Allergies Active Allergy Reactions Severity Noted Date Comments Nitrofurantoin Monohyd/M-Cryst Anaphylaxis 02/23/2012 Miconazole-Skin Clnsr17 Hives 06/09/2015 Morphine Itching 04/15/2015 documented as of this encounter (statuses as of 03/31/2020) Medications Medication Sig Dispensed Refills Start Date [...] ON patchIndications: TUESDAY AND TUESDAY. 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 S/P colectomy 04/10/2015 Obesity (BMI 30.0-34.9) 04/10/2015 Colon cancer 12/25/2014 Anxiety and depression 04/01/2014 documented as of this encounter (statuses as of 03/31/2020) Social History Tobacco Use Types Packs/Day Years Used Date Never Smoker Smokeless Tobacco: Never Used Alcohol Use Drinks/Week oz/Week Comments Yes occaisional drastrid k Sex Assigned at Date Recorded Not [...] Sign Reading Time Taken Comments Blood Pressure 94/52 03/31/2020 11:06 AM CDT Pulse 78 03/31/2020 11:06 AM CDT Temperature 37.1 C (98.7 F) 03/31/2020 11:06 AM CDT Respiratory Rate 20 03/31/2020 11:06 AM CDT Oxygen Saturation 100% 03/31/2020 11:06 AM CDT Inhaled Oxygen Concentration - - Weight 101.6 kg (224 lb) 03/31/2020 11:06 AM CDT Height 162.6 cm (5' 4") 03/31/2020 11:06 AM CDT Body Mass Index 38.45 03/31/2020 11:06 AM CDT documented in this encounter Patient Instructions Patient InstructionsLori Liang FNP - 03/31/2020 10:45 AM CDTPLAN You were given a steroid shot today of: Decadron 4mg and DepoMedrol 40mg - this can make you feel jittery and flushed - that is normal. Avoid wearing irritating fabrics, such as wool Avoid cosmetics Avoid scratching Antihistamines as ordered Topical anbibiotic ointment Plan of care, desired health behaviors, goals,& medication discussed with patient. Education resources & self management tools provided and reviewed with AVS. Patient/guardian/family verbalized understanding & agrees to plan of care. Barriers to care: None Ability to manage care: Good Follow up as we discussed or if ANY WORSE SYMPTOMS or SHORTNESS OF BREATH, CHEST PAINS/PRESSURE AND / OR REOCCURING FEVER, OR VOMITING - PLEASE SEEK MEDICAL ATTENTION. [facility] urgent care [phone], as well as after hours care nurse access center available by calling [phone] 24 hours 7 days per week. documented in this encounter Progress Notes Lela Grewal RN - 03/31/2020 10:45 AM CDJovanni Savage is a 44 year old female here for c/ skin problems. Patient states she [place] [employer] [place] and was swinging from a rope swing and fell onto some rocks. Patient states that she fell into poison curtis first then onto rocks. Patient reports large are of bruising/abrasion to L buttocks/thigh. Patient states she has poison curtis rash onto her arms, blistering noted. Patient states she has been taking benadryl, calamine, hydrocortisone, oatmeal baths and washing wound with peroxide. Lori Govea FNP - 03/31/2020 10:45 AM CDT Chief Complaint: poison curtis Informant(s): self Oliver Savage is a 44 year old female here for c/ skin problems. Patient [place] and [place] swinging from a rope swing and fell onto some rocks. Patient states that she fell into poison curtis first then onto rocks. Patient reports large are of bruising/abrasion to L buttocks/thigh. Patient states she has poison curtis rash onto her arms, blistering noted. Patient states she has been taking benadryl, calamine, hydrocortisone, oatmeal baths and washing wound with peroxide. 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 General: alert, active, in no acute distress Head: atraumatic and normocephalic Eyes: pupils equal, round, reactive to light and conjunctiva clear Ears: TM's normal, external auditory canals are clear Throat: moist mucous membranes, normal tonsils without erythema, exudates or petechiae Neck: supple and no lymphadenopathy Lungs: clear to auscultation Heart: regular rate and rhythm, no murmur Musculoskeletal: moves all extremities equally Skin: dermatitis/rash located on the outer surface of bilateral arm, outer surface of bilateral buttock(s), inner surface and outer surface of bilateral upper leg(s) , described as crusty, vesicular and weeping in appearance. Multiple abrasions with bruising on left buttocks. ASSESSMENT ICD-10-CM ICD-9-CM 1. Poison curtis dermatitis L23.7 692.6 PLAN You were given a steroid shot today of: Decadron 4mg and DepoMedrol 40mg - this can make you feel jittery and flushed - that is normal. Avoid wearing irritating fabrics, such as wool Avoid cosmetics Avoid scratching Antihistamines as ordered Topical anbibiotic ointment Plan of care, desired health behaviors, goals,& medication discussed with patient. Education resources & self management tools provided and reviewed with AVS. Patient/guardian/family verbalized understanding & agrees to plan of care. Barriers to care: None Ability to manage care: Good Follow up as we discussed or if ANY WORSE SYMPTOMS or SHORTNESS OF BREATH, CHEST PAINS/PRESSURE AND / OR REOCCURING FEVER, OR VOMITING - PLEASE SEEK MEDICAL ATTENTION. [facility] urgent care [phone], as well as after hours care nurse access center available by calling [phone] 24 hours 7 days per week. documented in this encounter Plan of Treatment Health Maintenance Due Date Last Done Comments PNEUMOCOCCAL 0-64 YEARS COMBINED 1979 SERIES (1 of 3 - PCV13) DTaP,Tdap,and Td Vaccines (1 - 1984 Tdap) PAP SMEAR 04/10/2018 04/10/2015 INFLUENZA VACCINE (#1) 2020 Breast Cancer Screening 08/03/2020 08/03/2019, 04/18/2018, (MAMMOGRAM) 01/19/2017, Additional history exists Depression Screening 08/03/2020 08/03/2019 documented as of this encounter Results Not on filedocumented in this encounter Visit Diagnoses Diagnosis Poison curtis dermatitis - Primary Contact dermatitis and other eczema due to plants (except food) documented in this encounter Administered Medications Medication Order MAR Action Action Date Dose Rate Site dexamethasone (DECADRON Given 03/31/2020 11:38 AM 4 mg Left PHOSPHATE) injection 4 mg CDT Dorsogluteal-IM 4 mg, Intramuscular, ONCE, 1 dose, Tue03/31/20 at 1130, Routine methylPREDNISolone acetate Given 03/31/2020 11:45 AM 40 mg Left Dorsogluteal-IM (DEPO-MEDROL) injection 40 mg CDT 40 mg, Intramuscular, ONCE, 1 dose, Tue03/31/20 at 1230, Routine documented in this encounter Insurance Payer Benefit Plan / Subscriber ID Effective Dates Phone Addre ss Type Group [facility] [id number] [facility] [place] P[place] t S documented as of this encounter
== END 2020-04-08 12:26 | disposition home or self-care (01) ==
LOC: ER 11:08
DX: L23.9 Allergic contact dermatitis, unspecified cause (principal); Z85.038 Personal history of other malignant neoplasm of large intestine; Z88.1 Allergy status to other antibiotic agents; Z88.3 Allergy status to other anti-infective agents; Z88.5 Allergy status to narcotic agent
CPT/HCPCS: 99283; J7512